=== PATIENT | male | born 1955 | race Caucasian/White ===

== ENCOUNTER 2020-08-26 08:31 | Emergency (ER) | payer MEDICARE, OTHER ==
[~2020-08-26] VITALS: Ht 180.3 cm; Wt 86.0 kg
[2020-08-26] MEDS ORDERED: DEXAMETHASONE 4 MG TABLET ONE (08:45)
[2020-08-26] MEDS ORDERED: IV NORMAL SALINE 1,000ML 1,000 ML IV ONE (08:45)
[2020-08-26] MEDS ORDERED: DEXAMETHASONE SOD PHOS 10 MG/ML VIAL. IV ONE (09:00)
[2020-08-26 09:32] LABS: BASO % 0 % (0-3); EOS % 0 % (0-3); HEMATOCRIT 43.5 % (39.0-53.0); HEMOGLOBIN 14.6 g/dL (13.0-17.5); LYMPH # 0.5 x10^3/uL (1.0-4.8); LYMPH % 17 % (24-48); MEAN CORPUSCULAR HEMOGLOBIN 31 pg (25-35); MEAN CORPUSCULAR HGB CONC 34 g/dL (31-37); MEAN CORPUSCULAR VOLUME 93 fL (79-100); MONO # 0.4 x10^3/uL (0.0-1.1); MONO % 13 % (0-9); NEUT # 2.1 x10^3uL (1.8-7.7); NEUT % 69 % (31-73); PLATELET COUNT 144 x10^3/uL (140-400); RED BLOOD COUNT 4.68 x10^6/uL (4.30-5.70); WHITE BLOOD COUNT 3.1 x10^3/uL (4.0-11.0)
--- NOTE | 2020-08-26 09:38 | PHYS DOC ---
Past History Past Medical History: No Pertinent History Past Surgical History: Other Additional Past Surgical Histo: HERNIA REPAIR Alcohol Use: None General Adult EDM: Chief Complaint: WEAKNESS/GENERALIZED HPI: HPI: Patient is a [age] year old [sex] who presents with [] Review of Systems: Review of Systems: Constitutional: Denies fever or chills Eyes: Denies change in visual acuity HENT: Denies nasal congestion or sore throat Respiratory: Denies cough or shortness of breath Cardiovascular: Denies chest pain or edema GI: Denies abdominal pain, nausea, vomiting, bloody stools or diarrhea : Denies dysuria Musculoskeletal: Denies back pain or joint pain Integument: Denies rash Neurologic: Denies headache, focal weakness or sensory changes Endocrine: Denies polyuria or polydipsia Lymphatic: Denies swollen glands Psychiatric: Denies depression or anxiety Current Medications: Current Meds: Current Medications Medications (Trade) Dose Ordered Sig/Joana Start Time Stop Time Status Last Admin Dose Admin Dexamethasone (Decadron) 4 mg STK-MED ONCE 08/26/20 08:45 08/26/20 08:45 DC Dexamethasone Sodium Phosphate (Decadron) 10 mg 1X ONCE 08/26/20 09:00 08/26/20 09:01 DC 08/26/20 09:09 10 MG Sodium Chloride 1,000 ml @ 1,000 mls/hr 1X ONCE 08/26/20 08:45 08/26/20 09:44 08/26/20 09:08 1,000 MLS/HR Allergies: Allergies: Allergies Coded Allergies Type Severity Reaction Last Updated Verified No Known Drug Allergies 08/26/20 No Physical Exam: PE: Constitutional: Well developed, well nourished, no acute distress, non-toxic appearance. [] HENT: Normocephalic, atraumatic, bilateral external ears normal, oropharynx moist, no oral exudates, nose normal. [] Eyes: PERRLA, EOMI, conjunctiva normal, no discharge. [] Neck: Normal range of motion, no tenderness, supple, no stridor. [] Cardiovascular:Heart rate regular rhythm, no murmur [] Lungs & Thorax: Bilateral breath sounds clear to auscultation [] Abdomen: Bowel sounds normal, soft, no tenderness, no masses, no pulsatile masses. [] Skin: Warm, dry, no erythema, no rash. [] Back: No tenderness, no CVA tenderness. [] Extremities: No tenderness, no cyanosis, no clubbing, ROM intact, no edema. [] Neurologic: Alert and oriented X 3, normal motor function, normal sensory function, no focal deficits noted. [] Psychologic: Affect normal, judgement normal, mood normal. [] Current Patient Data: Vital Signs: Vital Signs Date Time Temp Pulse Resp B/P (MAP) Pulse Ox O2 Delivery O2 Flow Rate FiO2 08/26/20 08:39 98.2 105 18 111/56 (74) 94 Room Air EKG: EKG: @0850 NSR at 94bpm, NO ST elevation, QRS 98ms, QT/QTc 322/408ms Radiology/Procedures: Radiology/Procedures: PROCEDURE: CHEST AP ONLY XR CHEST 1V Clinical Indication: Reason: weakness, COVID + Comparison: None. Findings: The cardiomediastinal silhouette is normal. There are mild bibasilar airspace opacities, most apparent on the left. There is no pneumothorax. No pleural effusion is appreciated. No acute bone abnormality. Deformity of upper right ribs. IMPRESSION: Minimal right and mild left basilar airspace disease may be pneumonia or atelectasis. Electronically signed by: Luke Real MD (08/26/2020 11:20 AM) [id number] Course & Med Decision Making: Course & Med Decision Making Pertinent Labs and Imaging studies reviewed. (See chart for details) [] Dragon Disclaimer: Dragon Disclaimer: This electronic medical record was generated, in whole or in part, using a voice recognition dictation system. Departure Departure: Impression: Primary Impression: Weakness Additional Impression: COVID-19 Disposition: 01 DC HOME SELF CARE/HOMELESS Condition: STABLE Referrals: NIKKI GILL MD (PCP) Patient Instructions: Incentive Spirometer, Viral Syndrome, Weakness, [id number] Additional Instructions: You have been tested for or diagnosed with COVID-19. It is an infection caused by a new type of coronavirus. COVID-19 will cause cold-like or mild flu symptoms in most. It can cause more severe symptoms like problems breathing in some. There is no treatment for COVID-19. The body will clear the infection over time. Self-care will help to ease discomfort. Steps to Take: Self-Care Rest as needed. Healthy habits may help you feel better. Steps include: Choose healthy foods including fruits and vegetables. Drink water throughout the day. Get plenty of sleep each night. If you smoke, try to quit. It may ease breathing. Avoid alcohol. Keep Others Healthy The virus can spread to others. Droplets are released every time you sneeze or cough. The droplets can get into the mouth, nose, or eyes of people near you and lead to infection. To lower the chances of spreading COVID-19 to others: Stay at home until your doctor has said it is safe to leave. If you tested positive this will mean staying isolated until both of the following are true: At least 7 days have passed since the start of illness. You are free of fever for at least 72 hours without the use of medicine. During this time: - Avoid public areas, events, or transportation. Do not return to work or school until your doctor has said it is safe to do so. - Call ahead if you need to go to a medical center. Let them know you may have COVID-19. It will help them guide you where to go. They may also ask you to wear a facemask when you come to the office. - If you call for emergency medical services, let them know you may have COVID- 19. While at home: - Try to avoid close contact with others. Stay about 6 feet away. - If possible, spend most of your time in a separate room from others. - Use a face mask if you will be in close contact with others such as sharing a room or vehicle. - Have someone wipe down common surfaces in the home. Use household sand tester every day on areas like doorknobs, counters, or sinks. - Cough or sneeze into a tissue. Throw the tissue away right after use. If a tissue is not available, cough or sneeze into your elbow. - Wash your hands often. Wash them after sneezing or coughing. Use soap and water and wash for at least 20 seconds. Alcohol based hand laundry or dry cleaners counter clerk can be used if soap and water is not available. - Do not prepare food for others. Avoid sharing personal items like forks, spoons, or toothbrushes. - Avoid close contact with pets while you are sick. There is no evidence of the virus passing to pets. This is a safety step until more is known about this virus. Isolation can be frustrating. Social interaction can help. Keep in touch with friends and family through phone and tech options. You can still interact with others in your home, just keep a safe distance of about 6 feet. Follow-up: Your doctors office will check in with you to see if there are any changes in your health. You may be asked to keep track of symptoms to share with them. They will also let you know when you are clear to be in public again. Problems to Look Out For: Contact your doctor if your recovery is not going as you expect. Get emergency care if you have problems such as: - Trouble breathing - Nonstop chest pain or pressure - Changes in awareness, confusion, or problems waking - Lips or face have bluish color - Worsening of symptoms If you think you have an emergency, call for emergency medical services right away. [facility] Azithromycin (AZITHROMYCIN TABLET) 250 Mg Tablet 1 PKG PO UD for COVID pneumonia, #6 TAB Take 2 tablets today and then one tablet every day thereafter for the next 4 days Prov: ЕКАТЕРИНА MORATAYA DO 08/26/20 ЕКАТЕРИНА MORATAYA DO Aug 26, 2020 09:38
[2020-08-26 09:45] LABS: CALCIUM 8.2 mg/dL (8.5-10.1); CREATININE 1.2 mg/dL (0.7-1.3); GFR 60.8; POTASSIUM 4.1 mmol/L (3.5-5.1)
[2020-08-26 10:00] LABS: ALBUMIN 3.3 g/dL (3.4-5.0); ALBUMIN/GLOBULIN RATIO 1.2 (1.0-1.7); MAGNESIUM 1.9 mg/dL (1.8-2.4); TOTAL BILIRUBIN 0.4 mg/dL (0.2-1.0); TOTAL PROTEIN 6.1 g/dL (6.4-8.2)
[2020-08-26 10:25] LABS: BILIRUBIN,URINE NEG (NEG); CLARITY,URINE HAZY; COLOR,URINE YELLOW; GLUCOSE,URINE NEG (NEG)
[2020-08-26 10:26] LABS: BACTERIA,URINE 0 /HPF (0-FEW); NITRITE,URINE NEG (NEG); SQUAMOUS EPITHELIAL CELL,UR FEW /LPF
[2020-08-26 11:08] VITALS: BP 120/65
--- NOTE | 2020-08-26 11:22 | RAD ---
XR CHEST 1V Clinical Indication: Reason: weakness, COVID + Comparison: None. Findings: The cardiomediastinal silhouette is normal. There are mild bibasilar airspace opacities, most apparen t on the left. There is no pneumothorax. No pleural effusion is appreciated. No acute bone abnormalit y. Deformity of upper right ribs. IMPRESSION: Minimal right and mild left basilar airspace disease may be pneumonia or atelectasis. Electronically signed by: Luke Real MD (08/26/2020 11:20 AM) [id number]
[2020-08-26] MEDS ORDERED: AZIT250T6 PO (11:27)
--- NOTE | 2020-08-26 13:27 | EKG ---
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
== END 2020-08-26 11:49 | disposition home or self-care (01) ==
LOC: ER 08:31
DX: U07.1 COVID-19 (principal); R53.1 Weakness
CPT/HCPCS: 36415; 71045; 80053; 81001; 82553; 83605; 83735; 84484; 85025; 85379; 85610; 85730; 93005; 96361; 96374; 99285; J1100; J7030

== ENCOUNTER 2020-08-27 14:25 | Emergency (ER) | payer MEDICARE, OTHER ==
[~2020-08-27] VITALS: Ht 180.3 cm; Wt 86.0 kg
[~2020-08-27 14:25] MED LIST: AZIT250T6 PO
[2020-08-27 15:05] VITALS: BP 108/66
--- NOTE | 2020-08-27 15:53 | PHYS DOC ---
Past History Past Medical History: No Pertinent History Past Surgical History: Other Additional Past Surgical Histo: HERNIA REPAIR Alcohol Use: None General Adult EDM: Chief Complaint: SHORTNESS OF BREATH HPI: HPI: This is a pleasant 65-year-old male presented emerge department today with cough and shortness of breath. He was seen yesterday and diagnosed with COVID-19. He was discharged yesterday but comes back because he had readings have his pulse ox in the 89 to 93% range. He otherwise feels comfortable and is not short of breath unless he walks briskly. At rest he is not short of breath. He denies chest pain. He denies unilateral leg swelling or hemoptysis. Onset 24 hours. Duration intermittent. No alleviating factors. Review of systems negative for chest pain abdominal pain vomiting. He does have fever. He has a cough. He denies headache or nuchal rigidity.. Positive for muscle aches. All other review of systems negative ED course: 65-year-old male presenting with oxygen readings at home of 89 to 93%. On arrival here the patient is 94 to 95%. He is breathing comfortably with a low-grade temperature. Prior to the patient leaving I was going to order an x-ray and draw blood work including a D-dimer. I explained to the patient that he has the chance of having a blood clot that I would like to exclude. The patient then left AGAINST MEDICAL ADVICE. He understands the risk of disability pain and suffering. AMA I informed the patient of their right to a medical screening exam and any treatment and/or stabilization that may be necessary regardless of their ability to pay. The patient appears to have intact insight, judgment, and reason. In my opinion, this patient has the capacity to make decisions. The patient presented with hypoxia at home and I am concerned that this could be worsening COVID-19 pneumonia, pulmonary embolism, pneumothorax, acute coronary syndrome, life- threatening anemia, or other life or limb threatening condition and or disabling condition. My initial plan prior to the pt expressing the desire to leave was chest x-ray, blood work, D-dimer, troponin plus or minus angiogram. I explained the risk of and disability to the patient in plain language which they were able to demonstrate in their own words verbal understanding. I discussed the limitations of the workup thus far included but were not limited to lack of testing. The pt has verbalized understanding of my concerns. I offered alternatives to the therapy including close follow-up or return for worsening symptoms. I recommended the pt follow up with PCP today or urgent care tomorrow morning. I explained that at any time if the patient changed their mind, we are always open and would be happy to have them back. The patient refused further care and then left against medical advice. Allergies: Allergies: Allergies Coded Allergies Type Severity Reaction Last Updated Verified No Known Drug Allergies 08/26/20 No Physical Exam: PE: Constitutional: Well developed, well nourished, no acute distress, non-toxic appearance. [] HENT: Normocephalic, atraumatic, bilateral external ears normal, oropharynx moist, no oral exudates, nose normal. [] Eyes: PERRLA, EOMI, conjunctiva normal, no discharge. [] Neck: Normal range of motion, no tenderness, supple, no stridor. [] Cardiovascular:Heart rate regular rhythm, no murmur [] Lungs & Thorax: Bilateral breath sounds clear to auscultation [] Abdomen: Bowel sounds normal, soft, no tenderness, no masses, no pulsatile masses. [] Skin: Warm, dry, no erythema, no rash. [] Back: No tenderness, no CVA tenderness. [] Extremities: No tenderness, no cyanosis, no clubbing, ROM intact, no edema. [] Neurologic: Alert and oriented X 3, normal motor function, normal sensory function, no focal deficits noted. [] Psychologic: Affect normal, judgement normal, mood normal. [] Current Patient Data: Vital Signs: Vital Signs Date Time Temp Pulse Resp B/P (MAP) Pulse Ox O2 Delivery O2 Flow Rate FiO2 08/27/20 15:05 106 108/66 (80) 94 08/27/20 14:34 100.0 20 Room Air EKG: EKG: [] Radiology/Procedures: Radiology/Procedures: [] Heart Score: Risk Factors: Risk Factors: DM, Current or recent (<one month) smoker, HTN, HLP, family history of CAD, obesity. Risk Scores: Score 0 - 3: 2.5% MACE over next 6 weeks - Discharge Home Score 4 - 6: 20.3% MACE over next 6 weeks - Admit for Clinical Observation Score 7 - 10: 72.7% MACE over next 6 weeks - Early Invasive Strategies Course & Med Decision Making: Course & Med Decision Making Pertinent Labs and Imaging studies reviewed. (See chart for details) [] Dragon Disclaimer: Dragon Disclaimer: This electronic medical record was generated, in whole or in part, using a voice recognition dictation system. Departure Departure: Impression: Primary Impression: Hypoxia Additional Impression: Dyspnea Disposition: 07 AMA/ELOPED/LWBS Condition: GUARDED Referrals: NIKKI GILL MD (PCP) DAYANA AGUSTIN MD Aug 27, 2020 15:53
== END 2020-08-27 15:15 | disposition left against medical advice (07) ==
LOC: ER 14:25
DX: R09.02 Hypoxemia (principal); R06.02 Shortness of breath
CPT/HCPCS: 99281

== ENCOUNTER 2020-08-30 09:18 | Emergency (ER) | payer MEDICARE, OTHER ==
[~2020-08-30] VITALS: Ht 180.3 cm; Wt 86.0 kg
[2020-08-30 10:06] VITALS: BP 94/71
--- NOTE | 2020-08-30 10:23 | PHYS DOC ---
Past History Past Medical History: No Pertinent History Past Surgical History: Other Additional Past Surgical Histo: HERNIA REPAIR Alcohol Use: None General Adult EDM: Chief Complaint: FATIGUE HPI: HPI: Patient is a 65-year-old male coming in for evaluation of his Covid symptoms. Patient says he was diagnosed a week ago has been gradually getting better. Per patient his wanted him to come in because he was not "getting better fast enough". He states that she had told him he looked pale this morning when he came downstairs. Patient states he feels like he has been getting better his fatigue is improving. Has had off-and-on fevers but overall has no significant cough, vomiting diarrhea, shortness of breath. Patient denies any chest pain or lower extremity edema. Patient stating that he just wanted a seal of approval and feels like he does not need any work-up. Was already being treated for a "spot of pneumonia" and has 1 more dose of a Z-Russell left. Review of Systems: Review of Systems: All other systems within normal limits except for as noted in the HPI Allergies: Allergies: Allergies Coded Allergies Type Severity Reaction Last Updated Verified No Known Drug Allergies 08/26/20 No Physical Exam: PE: Constitutional: Well developed, well nourished, no acute distress, non-toxic appearance. [] HENT: Normocephalic, atraumatic, bilateral external ears normal, nose normal. [] Eyes: PERRLA, conjunctiva normal, no discharge. [] Neck: No rigidity, supple, no stridor. [] Cardiovascular: Regular rate and rhythm, brisk cap refill [] Lungs & Thorax: Non labored symmetric respirations, no tachypnea or respiratory distress. Lungs clear to auscultation [] Abdomen: Soft, nondistended. Skin: Warm, dry, no erythema, no rash. [] Back: Unremarkable Extremities: No deformities, range of motion grossly intact, no lower extremity edema [] Neurologic: Alert and oriented X 3, no focal deficits noted. [] Psychologic: Affect normal, judgement normal, mood normal. [] Current Patient Data: Vital Signs: Vital Signs Date Time Temp Pulse Resp B/P (MAP) Pulse Ox O2 Delivery O2 Flow Rate FiO2 08/30/20 10:06 97.1 68 18 94/71 (79) 96 Room Air EKG: EKG: [] Radiology/Procedures: Radiology/Procedures: [] Heart Score: Risk Factors: Risk Factors: DM, Current or recent (<one month) smoker, HTN, HLP, family history of CAD, obesity. Risk Scores: Score 0 - 3: 2.5% MACE over next 6 weeks - Discharge Home Score 4 - 6: 20.3% MACE over next 6 weeks - Admit for Clinical Observation Score 7 - 10: 72.7% MACE over next 6 weeks - Early Invasive Strategies Course & Med Decision Making: Course & Med Decision Making Pertinent Labs and Imaging studies reviewed. (See chart for details) [] Dragon Disclaimer: Dragon Disclaimer: This electronic medical record was generated, in whole or in part, using a voice recognition dictation system. Departure Departure: Impression: Primary Impression: COVID-19 Disposition: 01 DC HOME SELF CARE/HOMELESS Condition: STABLE Referrals: NIKKI GILL MD (PCP) Patient Instructions: Viral Syndrome ELINOR EAOTN MD Aug 30, 2020 10:23
== END 2020-08-30 10:50 | disposition home or self-care (01) ==
LOC: ER 09:18
DX: U07.1 COVID-19 (principal)
CPT/HCPCS: 99281

== ENCOUNTER 2020-09-01 17:28 | Inpatient (IN) | payer MEDICARE, OTHER ==
[~2020-09-01] VITALS: Ht 182.9 cm; Wt 82.0 kg
--- NOTE | 2020-09-01 18:07 | PHYS DOC ---
Past History Past Medical History: No Pertinent History (RICH WOODARD APRN) Past Surgical History: Other Additional Past Surgical Histo: HERNIA REPAIR (RICH WOODARD APRN) Alcohol Use: None (RICH WOODARD APRN) Adult General Chief Complaint Chief Complaint: SHORTNESS OF BREATH HPI HPI Patient is a 65-year-old male patient presents with dyspnea and positive COVID. Patient reports he had been diagnosed with COVID 08/23/20, had been doing ok, but over the past couple days, he has had some increased difficulty breathing and increased malaise. Reports he been seen at this facility 2 days ago, and feels he is not progressing today, but he did not really know if he should be progr essing or what he should be expecting. Reports when he was initially diagnosed with Covid, he was given a prescription resulted nicely, he has completed the rest of azithromycin, for a very small area of Covid pneumonia. Denies any fevers. Does state he feels his brain has just been not as sharp as usual over the last few days as well. states he has felt some fever and chills overnight however, and has been unable to sleep very well. Reports he ambulates at home, he has felt some increased shortness of breath, he has been checking his pulse oximeter at home after walking, finding it 92- 93%. Denies any discomfort, denies any nausea, vomiting. States today he came in because he largely did not know what to expect or if he was actually progressing towards improvement with Covid as well as he wanted confirmation that his Covid pneumonia had improved. EMS reports patient had been hypoxic on their arrival, with SpO2 86-88% on room air, placed patient on O2. (RICH WOODARD APRN) Review of Systems Review of Systems Constitutional: Denies fever or chills [] however he does report some chills at night Eyes: Denies change in visual acuity, redness, or eye pain [] HENT: Denies nasal congestion or sore throat [] Respiratory: Denies cough [] states he has been feeling some shortness of breath Cardiovascular: No additional information not addressed in HPI [] denies chest pain GI: Denies abdominal pain, nausea, vomiting, bloody stools or diarrhea [] : Denies dysuria or hematuria [] Musculoskeletal: Denies back pain or joint pain [] Integument: Denies rash or skin lesions [] Neurologic: Denies headache, focal weakness or sensory changes [] Endocrine: Denies polyuria or polydipsia [] All other systems were reviewed and found to be within normal limits, except as documented in this note. (RICH WOODARD APRN) Allergies Allergies Allergies Coded Allergies Type Severity Reaction Last Updated Verified No Known Drug Allergies 08/26/20 No (RICH WOODARD APRN) Physical Exam Physical Exam Constitutional: Well developed, well nourished, no acute distress, non-toxic appearance. [] HENT: Normocephalic, atraumatic, bilateral external ears normal, oropharynx moist, no oral exudates, nose normal. [] Eyes: PERRLA, EOMI, conjunctiva normal, no discharge. [] Neck: Normal range of motion, no tenderness, supple, no stridor. [] Cardiovascular:Heart rate regular rhythm, no murmur [] Lungs & Thorax: Bilateral breath sounds clear to auscultation [] i remaining 95 to 96% on 2 L nasal cannula, will taper off Abdomen: Bowel sounds normal, soft, no tenderness, no masses, no pulsatile masses. [] Skin: Warm, dry, no erythema, no rash. [] Back: No tenderness, no CVA tenderness. [] Extremities: No tenderness, no cyanosis, no clubbing, ROM intact, no edema. [] Neurologic: Alert and oriented X 3, normal motor function, normal sensory function, no focal deficits noted. [] Psychologic: Affect normal, judgement normal, mood normal. [] (RICH WOODARD APRN) EKG EKG [] (RICH WOODARD APRN) Radiology/Procedures Radiology/Procedures PROCEDURE: CHEST PA & LATERAL Chest PA and lateral: Reason for examination: Cough and shortness of breath and fever. Comparison is made to previous study dated 08/26/2020. The heart size is normal. Mediastinum is unremarkable. Lung castro show presence of diffuse bilateral hazy opacities which are predominantly lower lobe. No pneumothorax or pleural effusions are seen. No acute bony abnormalities are present. IMPRESSION: Diffuse bilateral hazy opacities bilaterally consistent with pneumonia. Electronically signed by: Grace Morris MD (09/01/2020 6:21 PM) [id number] DICTATED AND SIGNED BY: GRACE MORRIS MD DATE: 09/01/201817[] (RICH WOODARD APRN) Heart Score Risk Factors: Risk Factors: DM, Current or recent (<one month) smoker, HTN, HLP, family history of CAD, obesity. Risk Scores: Risk Factors: DM, Current or recent (<one month) smoker, HTN, HLP, family history of CAD, obesity. (RICH WOODARD APRN) Course & Med Decision Making Course & Med Decision Making Pertinent Labs and Imaging studies reviewed. (See chart for details) [] Patient remains on O2 at 2 lpm maintaining SPO2 94%. Discussed imaging findings and will plan for admission @[address] Denise, agrees to admission. Patient in agreement with plan (RICH WOODARD APRN) Course & Med Decision Making Did not see or evaluate patient. Did not discuss patient with PA. Agree with work-up and disposition per note. (SAVANAH CARRENO MD) Dragon Disclaimer Dragon Disclaimer This electronic medical record was generated, in whole or in part, using a voice recognition dictation system. (RICH WOODARD APRN) Departure Departure: Impression: Primary Impression: Pneumonia Additional Impression: COVID-19 Disposition: 09 ADMITTED INPT THIS HOSP Admitting Physician: Everett Denise (RICH WOODARD APRN) Condition: STABLE Referrals: NIKKI GILL MD (PCP) Problem Qualifiers Primary Impression: Pneumonia Pneumonia type: due to unspecified organism Laterality: bilateral Lung location: unspecified part of lung Qualified Codes: J18.9 - Pneumonia, unspecified organism RICH WOODARD APRN Sep 01, 2020 18:07 SAVANAH CARRENO MD Sep 01, 2020 22:05
--- NOTE | 2020-09-01 18:23 | RAD ---
Chest PA and lateral: Reason for examination: Cough and shortness of breath and fever. Comparison is made to previous study dated 08/26/2020. The heart size is normal. Mediastinum is unremarkable. Lung castro show presence of diffuse bilateral hazy opacities which are predominantly lower lobe. No pneumothorax or pleural effusions are seen. No acute bony abnormalities are present. IMPRESSION: Diffuse bilateral hazy opacities bilaterally consistent with pneumonia. Electronically signed by: Grace Ojeda MD (09/01/2020 6:21 PM) JOSE
[2020-09-01 19:31] LABS: BASO % 0 % (0-3); EOS % 0 % (0-3); HEMATOCRIT 37.9 % (39.0-53.0); HEMOGLOBIN 12.9 g/dL (13.0-17.5); LYMPH # 0.6 x10^3/uL (1.0-4.8); LYMPH % 12 % (24-48); MEAN CORPUSCULAR HEMOGLOBIN 31 pg (25-35); MEAN CORPUSCULAR HGB CONC 34 g/dL (31-37); MEAN CORPUSCULAR VOLUME 92 fL (79-100); MONO # 0.4 x10^3/uL (0.0-1.1); MONO % 8 % (0-9); NEUT # 4.2 x10^3uL (1.8-7.7); NEUT % 80 % (31-73); PLATELET COUNT 290 x10^3/uL (140-400); RED BLOOD COUNT 4.11 x10^6/uL (4.30-5.70); RED CELL DISTRIBUTION WIDTH 13.1 % (11.5-14.5); WHITE BLOOD COUNT 5.3 x10^3/uL (4.0-11.0)
[2020-09-01 19:47] LABS: CALCIUM 7.8 mg/dL (8.5-10.1); CREATININE 0.9 mg/dL (0.7-1.3); GFR 84.7; POTASSIUM 3.4 mmol/L (3.5-5.1)
[2020-09-01 19:54] LABS: ALBUMIN 2.5 g/dL (3.4-5.0); ALBUMIN/GLOBULIN RATIO 0.9 (1.0-1.7); C REACTIVE PROTEIN 85.7 mg/L (0-3.3); TOTAL BILIRUBIN 0.5 mg/dL (0.2-1.0); TOTAL PROTEIN 5.3 g/dL (6.4-8.2)
[2020-09-01] MEDS ORDERED: levoFLOXacin 500 MG TABLET PO ONE (20:30)
[2020-09-01] MEDS ORDERED: ONDANSETRON PF 4 MG/2 ML VIAL. IVP PRN (20:30)
[2020-09-01] MEDS ORDERED: ACETAMINOPHEN 325 MG TABLET PO PRN (20:30)
[2020-09-01 22:42] VITALS: BP 132/84
[2020-09-01] MEDS: IPRATROPIUM/ALBUTEROL 20/100mcg/INH INHALER. INH SCH (23:00)
[2020-09-01] MEDS ORDERED: IPRA4AER INH (23:15)
[2020-09-01] MEDS ORDERED: LEVO750P IV (23:15)
[2020-09-01] MEDS ORDERED: DEXA4TAB63 PO (23:15)
[2020-09-02] MEDS ORDERED: DEXA4TAB63 IVP (04:48)
[2020-09-02] MEDS ORDERED: DEXA4VIA37 IVP (04:50)
[2020-09-02] MEDS: DEXAMETHASONE SOD PHOS 4 MG/ML VIAL. IVP SCH ×3 (05:12→20:57)
[2020-09-02 05:53] VITALS: BP 114/74
[2020-09-02] MEDS ORDERED: DEXAMETHASONE 4 MG TABLET PO SCH (06:00)
[2020-09-02] MEDS ORDERED: NON FORMULARY ITEM (Ipratropium/Albuterol Sulfate (Combivent Respimat Inhal) 1 PUFF) INH SCH (06:00)
[2020-09-02 06:18] LABS: HEMATOCRIT 38.5 % (39.0-53.0); HEMOGLOBIN 12.8 g/dL (13.0-17.5); RED BLOOD COUNT 4.15 x10^6/uL (4.30-5.70); WHITE BLOOD COUNT 5.6 x10^3/uL (4.0-11.0)
[2020-09-02 06:19] LABS: BASO % 0 % (0-3); EOS % 0 % (0-3); LYMPH # 0.5 x10^3/uL (1.0-4.8); LYMPH % 8 % (24-48); MEAN CORPUSCULAR HEMOGLOBIN 31 pg (25-35); MEAN CORPUSCULAR HGB CONC 33 g/dL (31-37); MEAN CORPUSCULAR VOLUME 93 fL (79-100); MONO # 0.5 x10^3/uL (0.0-1.1); MONO % 8 % (0-9); NEUT # 4.7 x10^3uL (1.8-7.7); NEUT % 84 % (31-73); PLATELET COUNT 309 x10^3/uL (140-400); RED CELL DISTRIBUTION WIDTH 13.1 % (11.5-14.5)
[2020-09-02 06:30] LABS: ALBUMIN 2.4 g/dL (3.4-5.0); ALBUMIN/GLOBULIN RATIO 0.6 (1.0-1.7); CALCIUM 7.9 mg/dL (8.5-10.1); CREATININE 0.9 mg/dL (0.7-1.3); GFR 84.7; POTASSIUM 3.6 mmol/L (3.5-5.1); TOTAL BILIRUBIN 0.6 mg/dL (0.2-1.0); TOTAL PROTEIN 6.1 g/dL (6.4-8.2)
[2020-09-02] MEDS: ENOXAPARIN 40 MG/0.4 ML SYRINGE. SQ SCH (07:28)
[2020-09-02] MEDS: IPRATROPIUM/ALBUTEROL 20/100mcg/INH INHALER. INH SCH ×4 (07:28→20:00)
[2020-09-02 10:19] VITALS: BP 118/72
--- NOTE | 2020-09-02 14:50 | HP ---
ADMIT DATE: 09/01/2020 HISTORY OF PRESENT ILLNESS: The patient is a 65-year-old male patient, who presented to the Emergency Room with shortness of breath. He was diagnosed with COVID on 08/23/2020 at [facility] and had been doing okay, but over the past couple of days, he has had some increased difficulty breathing and increased malaise. He reports that he has been seen at this facility 2 days ago and feels that he is not progressing today, but he did not really know if he should be progressing or what he should be expecting. He was given a prescription for Zithromax that he has completed for and he denied any fever. He does states that he feel his brain has just been not as sharp as usual over the last few days as well. States he has felt some fever and chills overnight; however, he has been unable to sleep very well. He reported he ambulates at home. He has felt some increased shortness of breath and has been checking his pulse oximeter at home after walking, finding at 90-93%. He denied any discomfort. Denied any nausea, vomiting or diarrhea. He came on the day of admission because he did not know what to expect or if he was actually progressing towards improvement with COVID as well as he wanted confirmation that his COVID pneumonia has improved, but EMS reports, the patient has been hypoxic on their arrival with an oxygen saturation of 86-80% on room air and was placed on oxygen. He was extensively investigated in the Emergency Room. He has had a chest x-ray, which showed that the heart size is normal, mediastinum is unremarkable, lung castro show presence of diffuse bilateral hazy opacities, which are predominantly lower lobe. There is no pneumothorax or pleural effusion seen. No acute bony abnormalities are present. The impression is the patient has diffuse bilateral hazy opacities bilaterally consistent with pneumonia. He had lab work done, which were mostly unremarkable and was admitted and was started on dexamethasone, levofloxacin as well as Lovenox. PAST MEDICAL HISTORY: Unremarkable. PAST SURGICAL HISTORY: Significant for right inguinal hernia repair. ALLERGIES: He has no known drug allergies. MEDICATIONS: The patient is only on aapb-sul-hnrfgyj medication including multivitamins, vitamin C, but none by prescription. FAMILY HISTORY: He has 2 sisters younger and healthy. His father at the age of 51 because of myocardial infarction. Mother is still alive at age of 86 and has dementia and lives in an assisted living facility. SOCIAL HISTORY: He is , has 2 daughters and 1 son. He quit smoking about 30 years ago. He drinks a glass of wine and 2 cans of beer every day. He does not use any drugs. 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 REVIEW OF SYSTEMS: The patient denied any blurring of vision, cataract, glaucoma or macular degeneration. Denied any earache, tinnitus or sensorineural deafness. Denied nosebleeds, stuffy nose or postnasal drip. Denied any sore throat, sore tongue, toothache, hoarseness of voice or difficulty swallowing. He denied any nausea, vomiting, diarrhea or constipation. Denied any hematemesis, melena or hematochezia. Denied any dysuria, frequency or hematuria. Denied any chest pain, but did complain of shortness of breath. Denied any orthopnea or paroxysmal nocturnal dyspnea. Denied any cough, phlegm or hemoptysis. Did complain of generalized aches and pains. PHYSICAL EXAMINATION: GENERAL: On arrival to the Emergency Room, he looked well and was clearly in no apparent respiratory distress. No pallor, jaundice, cyanosis or thyromegaly. No jugular venous distension. No limb edema. VITAL SIGNS: His heart rate was 79, blood pressure was 107/55, temperature was 99.7, respiratory rate 20, and oxygen saturation was 96%. HEAD, EYES, EARS, NOSE AND THROAT: Showed normocephalic, atraumatic. NECK: Supple. HEART: Showed normal first and second heart sounds. No gallop or murmur. CHEST: Shows central trachea, equal bilateral expansion, air entry, vesicular breath sounds with bilateral crepitation. I could not appreciate any rhonchi. ABDOMEN: Scaphoid, soft, nontender. NEUROLOGIC: Somewhat slow to respond, but all his cranial nerves are intact. EXTREMITIES: He moves extremities without difficulty. He ambulates without assistance or assistive devices. LABORATORY DATA: His white cell count was 5300, hemoglobin 13, hematocrit 38, MCV 92, and platelet count 290,000 with a manual differential showed 80% polymorphs, 12% lymphocytes, 8% monocytes. Serum sodium was 139, potassium 3.4, chloride 103, bicarbonate 27.9, anion gap of 9, BUN 17, creatinine 0.9, estimated GFR was 85 mL per minute. His glucose was 121, calcium was 7.8. Total bilirubin and alkaline phosphatase were normal. AST, ALT slightly elevated. His C-reactive protein was high at 85.7. Total protein was 5.3, albumin was 2.5. His chest x-ray showed that the patient has diffuse bilateral hazy opacities bilaterally consistent with pneumonia. ASSESSMENT AND PLAN: In summary, this is a 65-year-old male patient, who was admitted with COVID-19 pneumonia and acute hypoxic respiratory failure. He has no other medical problems. He was tested positive for coronavirus on 08/23/2020 at the [facility]. He has completed a course of Zithromax. He will be admitted to continue on dexamethasone, IV Levaquin as well as Lovenox. We will follow him closely and decide the further management accordingly. ADRIENNE KEITH MD DR: NATHAN/sanjeev JOB#: [id number] / [id number]
--- NOTE | 2020-09-02 15:25 | PN ---
DATE: 09/02/2020 SUBJECTIVE: The patient is resting, slightly propped up in bed, in no apparent respiratory distress. He is awake and alert. On questioning him, he denied any complaint. The nursing staff did not voice any concern. His oxygen saturation on room air was 95%. He did actually 6-minute walk and his oxygen saturation remained stable around 95%. PHYSICAL EXAMINATION: GENERAL: When I examined him, he looked well and was clearly in no apparent respiratory distress. No pallor, jaundice, cyanosis, or thyromegaly. No jugular venous distention, no limb edema. VITAL SIGNS: His heart rate was 83, blood pressure was 118/75, temperature was 99.1, respiratory rate was 20, and oxygen saturation was 95% on room air. HEAD, EYES, EARS, NOSE AND THROAT: He is normocephalic, atraumatic. NECK: Supple. HEART: Normal first and second heart sounds. No gallop or murmur. CHEST: Showed central trachea. Equal bilateral chest expansion, air entry. Vesicular sounds with bilateral basal crepitation posteriorly. I could not appreciate any rhonchi. ABDOMEN: Scaphoid, soft, nontender. NEUROLOGIC: He was grossly intact. He moves all extremities without difficulty, ambulates without assistance or assistive devices. LABORATORY DATA: His lab work this morning showed a white cell count 5600, hemoglobin 12.8, hematocrit 38, MCV 93, and platelet count of 309,000 with a manual differential showed 84% polymorphs, 8% lymphocytes, and 8% monocytes. His chemistry showed a serum sodium of 140, potassium 3.6, chloride 103, bicarbonate 26, anion gap of 11, BUN 14, creatinine 0.9, estimated GFR was 84 mL per minute. His glucose 147, calcium was 7.9, total bilirubin and alkaline phosphatase is normal. AST and ALT are elevated. Total protein 6.1, albumin 2.4. ASSESSMENT: 1. COVID-19 pneumonia. 2. Acute hypoxic respiratory failure, improving. PLAN: Plan is to continue with IV levofloxacin. Continue with dexamethasone as well as Lovenox, albuterol, and Atrovent. I will repeat all his lab work tomorrow morning; and if he remained stable, he can be discharged to continue treatment as an outpatient. ADRIENNE KEITH MD DR: NATHAN/sanjeev JOB#: [id number] / [id number]
[2020-09-02 16:30] VITALS: BP 119/74
[2020-09-02 19:49] VITALS: BP 114/73
[2020-09-02] MEDS: LACTOBACILLUS RHAMNOSUS GG 1 CAPSULE. PO SCH (20:56)
[2020-09-02 22:24] VITALS: BP 115/72
[2020-09-03] MEDS: DEXAMETHASONE SOD PHOS 4 MG/ML VIAL. IVP SCH (05:16)
[2020-09-03 05:55] VITALS: BP 109/71
[2020-09-03 06:32] LABS: ALBUMIN 2.5 g/dL (3.4-5.0); ALBUMIN/GLOBULIN RATIO 0.6 (1.0-1.7); C REACTIVE PROTEIN 141.8 mg/L (0-3.3); CALCIUM 8.5 mg/dL (8.5-10.1); CREATININE 0.8 mg/dL (0.7-1.3); POTASSIUM 3.5 mmol/L (3.5-5.1); TOTAL BILIRUBIN 0.6 mg/dL (0.2-1.0); TOTAL PROTEIN 6.7 g/dL (6.4-8.2)
[2020-09-03] MEDS: LACTOBACILLUS RHAMNOSUS GG 1 CAPSULE. PO SCH (08:13)
[2020-09-03] MEDS: IPRATROPIUM/ALBUTEROL 20/100mcg/INH INHALER. INH SCH ×2 (08:13→11:47)
[2020-09-03] MEDS: ENOXAPARIN 40 MG/0.4 ML SYRINGE. SQ SCH (08:14)
[2020-09-03 10:27] VITALS: BP 104/68
[2020-09-03] MEDS ORDERED: GUAI600T47 PO (13:52)
[2020-09-03] MEDS ORDERED: CEFD300C PO (13:52)
--- NOTE | 2020-09-03 14:16 | DS ---
DATE OF DISCHARGE: 09/03/2020 HOSPITAL COURSE: The patient is a 65-year-old male patient who was apparently admitted with increasing shortness of breath and hypoxia. He was tested positive for COVID-19 on 08/23/2020 at [facility] and had been doing okay, but over the past couple of days, he has had some increasing difficulty breathing and increased malaise. He was seen in the Emergency Room of [facility] and was given a prescription for Zithromax that he has completed. He denied any fever. He does state that he feels his chest pain is not as sharp as usual over the last few days. He basically was admitted, started on IV dexamethasone as well as IV Levaquin together with Combivent Respimat as well as the Lovenox and he did actually very well. He has remained stable throughout his stay, was afebrile, hemodynamically stable. His oxygen saturation remained at 95% on room air. We did actually 6-minute walk and he remained at that level throughout the test and therefore, a decision was made to discharge him home to complete his antibiotic and dexamethasone as an outpatient. PHYSICAL EXAMINATION: GENERAL: When I saw him this afternoon, he looked well and was clearly in no apparent respiratory distress. No pallor, jaundice, cyanosis or thyromegaly. No jugular venous distension. No lower limb edema. VITAL SIGNS: His heart rate was 74, blood pressure was 104/68, temperature was 96.8, respiratory rate was 14 and oxygen saturation was 95%. HEAD, EYES, EARS, NOSE AND THROAT: Showed normocephalic, atraumatic. NECK: Supple. HEART: Normal first and second heart sounds. No gallop or murmur. CHEST: Shows central trachea, equal bilateral expansion, air entry, vesicular sounds. No crepitation. Very few crepitations posteriorly. No rhonchi. ABDOMEN: Distended, soft, nontender. NEUROLOGIC: He was grossly intact. LABORATORY DATA: His lab work this morning showed a serum sodium 139, potassium 3.5, chloride 102, bicarbonate 29, anion gap of 8, BUN of 12, creatinine 0.8, estimated GFR was 97 mL per minute. His glucose 172, calcium was 8.5. Total bilirubin and alkaline phosphatase normal. AST, ALT slightly elevated. His C-reactive protein slightly high at 141. Total protein 6.7, albumin was 2.5. His D-dimer was 0.7. His white cell count was 5600, hemoglobin 12.8, hematocrit 38.5, MCV 93, and platelet count 309,000 with a manual differential showed 84% polymorphs, 8% lymphocytes and 8% monocytes. DISCHARGE MEDICATIONS: The patient will be discharged home to continue on oral ceftriaxone 300 mg twice a day, dexamethasone 4 mg once a day for 3 days and then dexamethasone 2 mg once a day for 2 days. He also was given a prescription for Mucinex 600 mg extended release twice a day for 10 days. FINAL DISCHARGE DIAGNOSES: COVID-19 pneumonia and acute hypoxic respiratory failure, resolved. ADDENDUM The patient is doing actually very well. He is up and about, maintaining his oxygen saturation at 95% with his 6-minute walk and his oxygen saturation remained at 95%. His lab work, however, showed that his liver enzymes are slightly elevated. The AST and ALT are 154 and 276, likely due to a side effect of Levaquin. However, his C-reactive protein has also risen to 141.8 and his D-dimer was 0.70 and, therefore, the patient was discharged home to continue on his antibiotic and dexamethasone as well as Mucinex, Combivent, and incentive spirometry. I made it very clear to him that if his symptoms have worsened and he became more short of breath or hypoxic, he obviously needs to come to the nearest emergency room, although as of now, he seems to be improving and getting much better. ADRIENNE KEITH MD DR: NATHNA/sanjeev JOB#: [id number] / [id number]
== END 2020-09-03 14:28 | disposition home or self-care (01) | DRG 177 ==
LOC: ER 17:28 → 1 SOUTH 20:20
PROVIDERS: ADMIT Internal Medicine; ATTEND Internal Medicine
DX: U07.1 COVID-19 (principal); J96.01 Acute respiratory failure with hypoxia; J12.82 Pneumonia due to coronavirus disease 2019; Z82.49 Family history of ischemic heart disease and other diseases of the circulatory system; Z87.891 Personal history of nicotine dependence; Z79.899 Other long term (current) drug therapy
CPT/HCPCS: 36415; 71046; 80053; 83605; 84484; 85025; 85379; 86140; 99281; J1100; J1650; J1956; 99285-25